=== PATIENT | female | born 1950 | race Caucasian/White ===

== ENCOUNTER 2017-08-06 13:08 | Emergency (ER) | payer OTHER, BC ==
[2017-08-06] MEDS ORDERED: PROPARACAINE/FLUORESCEIN SOD 5 ML OPHT.BTL ONE (13:23)
--- NOTE | 2017-08-06 13:38 | EDPHY ---
H & P Time Seen by Provider: 08/06/17 13:19 HPI/ROS: CHIEF COMPLAINT: Left eye flashes and floaters HISTORY OF PRESENT ILLNESS: 66-year-old female presents with left eye flashes and floaters. Onset of a flashing sensation left eye this morning. The flashing has subsided and she now has floaters in the left eye. No visual change or drainage. History of occasional flashes in the past, but not this persistent. No headache or recent head trauma. Past Medical/Surgical History: Melanoma Social History: [place] Smoking Status: Never smoked Physical Exam: Visual Acuity: noted from Nurse's notes. Lids: no proptosis, no periorbital erythema or swelling, no vesicles Conjunctivae: No erythema, no discharge Pupils:equal round and reactive to light EOMI Cornea: Normal Anterior chamber:Clear, no hyphema Constitutional: Initial Vital Signs Temperature (C) 36.7 C 08/06/17 13:11 Heart Rate 77 08/06/17 13:11 Respiratory Rate 16 08/06/17 13:11 Blood Pressure 118/64 08/06/17 13:11 O2 Sat (%) 97 08/06/17 13:11 O2 Delivery Mode Room Air Allergies/Adverse Reactions: No Known Allergies Allergy (Unverified 08/06/17 13:14) Home Medications: Medication Instructions Recorded NK [No Known Home Meds] 08/06/17 Medical Decision Making ED Course/Re-evaluation: left eye flashes/floaters, normal vision. c/w vitreous/retinal detachment. Dr. Devlin consulted, will see pt in office on Tuesday. Differential Diagnosis: Differential diagnosis includes hyphema, acute iritis, traumatic mydriasis, corneal abrasion, globe rupture, retinal detachment, vitreous hemorrhage. Departure - Departure Disposition: Home, Routine, Self-Care Clinical Impression: Eye floaters and flashes Condition: Good Instructions: Visual Floaters (ED) Referrals: Charles Devlin MD [Medical Doctor] - As per Instructions (Dr. Devlin with [facility] will see you in his office at 8:30am on Tuesday. His office is in this building.)
[2017-08-06 14:31] VITALS: BP 155/70
== END 2017-08-06 14:31 | disposition home or self-care (01) ==
DX: H43.392 Other vitreous opacities, left eye (principal)